=== PATIENT | male | born 1975 | race Caucasian/White ===

== ENCOUNTER 2023-01-08 14:36 | Emergency (ER) | payer SELFPAY ==
[~2023-01-08] VITALS: Ht 177.8 cm; Wt 59.0 kg
[2023-01-08] MEDS ORDERED: ALPRAZOLAM ER1 MG PO (14:44)
[2023-01-08] MEDS ORDERED: NEURONTIN300 MG PO (14:44)
--- NOTE | 2023-01-09 07:44 | EKG ---
[facility] [address] [place], [place] [address] Signed Normal sinus rhythm with sinus arrhythmia Rightward axis Borderline ECG No previous ECGs available Confirmed by REGIS VERA MD ([id number] on 01/09/2023 7:44:20 AM Electronically Signed By: REGIS VERA MD 01/09/23 0744 PATIENT NAME: BREANNA BADILLO Electrocardiogram DATE OF : 79 PHYSICIAN: REGIS VERA MD REPORT #: [id number] REPORT IS CONFIDENTIAL AND NOT TO BE RELEASED WITHOUT AUTHORIZATION
== END 2023-01-08 15:02 | disposition left against medical advice (07) ==
LOC: ED 14:36
DX: R07.9 Chest pain, unspecified (principal); Z79.899 Other long term (current) drug therapy; Z53.21 Procedure and treatment not carried out due to patient leaving prior to being seen by health care provider
CPT/HCPCS: 36415; 80053; 83735; 84484; 85025; 93005; 93010